=== PATIENT | female | born 1960 ===

== ENCOUNTER 2019-12-23 20:13 | Emergency (ER) | payer SELFPAY ==
[~2019-12-23] VITALS: Ht 175.3 cm; Wt 106.8 kg
[2019-12-23] MEDS ORDERED: CRUTCHES MC (21:29)
[2019-12-23 22:24] VITALS: BP 148/76; PULSE 76; TEMP 98
== END 2019-12-23 22:38 | disposition home or self-care (01) ==
LOC: COL.ER 20:13
DX: S82.434A Nondisplaced oblique fracture of shaft of right fibula, initial encounter for closed fracture (principal); W17.89XA Other fall from one level to another, initial encounter